=== PATIENT | male | born 1970 | race Asian ===

== ENCOUNTER 2018-06-15 00:09 | Emergency (ER) | payer OTHER ==
[~2018-06-15] VITALS: Ht 188 cm; Wt 90.7 kg
[2018-06-15 00:09] VITALS: BP 146/100; TEMP 98.2
[2018-06-15 01:14] LABS: PLATELET COUNT 285 K/uL (142-355)
[2018-06-15 02:40] LABS: POTASSIUM 3.7 mmol/L (3.6-5.2); SODIUM 142 mmol/L (136-145)
== END 2018-06-15 02:00 | disposition home or self-care (01) ==
LOC: ED 00:09
PROVIDERS: Internal Medicine
DX: F10.129 Alcohol abuse with intoxication, unspecified (principal); F19.929 Other psychoactive substance use, unspecified with intoxication, unspecified
CPT/HCPCS: 36415; 80053; 80307; 80320; 80329; 81000; 85027; 93005; 99283

== ENCOUNTER 2020-04-20 18:20 | Emergency (ER) | payer OTHER ==
[~2020-04-20] VITALS: Ht 188 cm; Wt 90.7 kg
[2020-04-20 19:50] VITALS: BP 153/104; TEMP 98.6
== END 2020-04-20 19:50 | disposition home or self-care (01) ==
LOC: ED 18:20
DX: S01.511A Laceration without foreign body of lip, initial encounter (principal); Y09 Assault by unspecified means; Y92.89 Other specified places as the place of occurrence of the external cause
CPT/HCPCS: 90471; 90715; 99283